=== PATIENT | female | born 2000 | race Asian ===

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

== ENCOUNTER → 2021-01-23 13:36 | Outpatient (CLI) | payer BC, SELFPAY ==
[2021-01-23] MEDS: COVID-19 VACC #1, MRNA(MOD) 100 MCG/0.5 ML VIAL IM (13:42)
== END ==
PROVIDERS: Family Provider Pediatrics; PCP Family Medicine; Visit Provider Internal Medicine
DX: Z23 Encounter for immunization (principal)
CPT/HCPCS: 0011A; 91301

== ENCOUNTER → 2021-02-20 13:23 | Outpatient (CLI) | payer BC, SELFPAY ==
[2021-02-20] MEDS: COVID-19 VACC #2, MRNA(MOD) 100 MCG/0.5 ML VIAL IM (13:30)
== END ==
PROVIDERS: Family Provider Pediatrics; PCP Family Medicine; Visit Provider Internal Medicine
DX: Z23 Encounter for immunization (principal)
CPT/HCPCS: 0012A; 91301

== ENCOUNTER → 2021-09-22 11:14 | Outpatient (CLI) | payer BC, SELFPAY ==
[2021-09-22 13:13] LABS: Cholesterol 190 mg/dL (140-199); HDL Cholesterol 57 mg/dL (40-60); LDL Cholesterol Calculated 103 mg/dL (<100); Triglycerides 152 mg/dL (35-150)
== END ==
PROVIDERS: Family Provider Pediatrics; PCP Family Medicine; Referring Provider Family Medicine; Visit Provider Family Medicine
DX: E78.5 Hyperlipidemia, unspecified (principal)
CPT/HCPCS: 36415; 80061

== ENCOUNTER → 2024-06-26 11:20 | Outpatient (CLI) | payer BC, SELFPAY | PROVIDERS: Family Provider Pediatrics; PCP Family Medicine; Referring Provider Family Medicine; Visit Provider Family Medicine | DX: Z78.9 Other specified health status (principal) | CPT/HCPCS: 36415; 86706 ==